=== PATIENT | male | born 1985 | race Caucasian/White ===

== ENCOUNTER 2017-04-22 06:20 | Day surgery (SDC) | payer OTHER ==
[~2017-04-22] VITALS: Ht 185.4 cm; Wt 76.8 kg
[2017-04-22] MEDS ORDERED: MIDAZOLAM 1 MG/ML, 2ML ONE (06:45)
[2017-04-22] MEDS ORDERED: FENTANYL PF 100 MCG/2ML ONE ×4 (06:46→10:44)
[2017-04-22] MEDS ORDERED: BUPIVACAINE/PF 0.5% ONE (06:51)
[2017-04-22] MEDS ORDERED: EPINEPHRINE 1 MG/ML, 1ML ONE (06:51)
[2017-04-22] MEDS ORDERED: LACTATED RINGERS 1,000 ML IV SCH ×2 (07:04→07:30)
[2017-04-22 07:06] VITALS: BP 120/78
[2017-04-22 07:11] VITALS: BP 120/78
[2017-04-22] MEDS ORDERED: NONE PER PT (07:19)
[2017-04-22 07:43] LABS: HEMATOCRIT 49.3 % (39.2-51.8); HEMOGLOBIN 16.7 g/dL (13.7-18.0); WHITE BLOOD COUNT 8.7 x10^3/uL (3.4-10)
[2017-04-22] MEDS ORDERED: NEOSTIGMINE 1 MG/ML, 10ML ONE (07:54)
[2017-04-22] MEDS ORDERED: SUCCINYLCHOLINE 20 MG/ML, 10ML ONE (07:54)
[2017-04-22] MEDS ORDERED: DEXAMETHASONE 4 MG/ML, 5ML ONE (07:54)
[2017-04-22] MEDS ORDERED: GLYCOPYRROLATE 0.2MG/1ML ONE (07:54)
[2017-04-22] MEDS ORDERED: PROPOFOL 10 MG/ML, 20ML ONE (07:54)
[2017-04-22] MEDS ORDERED: ROCURONIUM 10 MG/ML ONE ×3 (07:54)
[2017-04-22] MEDS ORDERED: CEFAZOLIN 1,000 MG ONE (07:54)
[2017-04-22] MEDS ORDERED: ONDANSETRON 2MG/ML, 2ML ONE (07:54)
[2017-04-22] MEDS ORDERED: OXYcodone 5 MG/5 ML ORAL.SOL UDC PO PRN (08:30)
[2017-04-22] MEDS ORDERED: hydrALAzine 20 MG/ML, 1ML IV PRN (08:30)
[2017-04-22] MEDS ORDERED: ONDANSETRON 2MG/ML, 2ML IVPush PRN (08:30)
[2017-04-22] MEDS ORDERED: PROMETHAZINE 25 MG/ML, 1ML IV PRN (08:30)
[2017-04-22] MEDS ORDERED: HYDROmorphone 1 MG/ML, 1ML IV PRN (08:30)
[2017-04-22] MEDS ORDERED: MEPERIDINE/PF 25MG/0.5ML IVPush PRN (08:30)
[2017-04-22] MEDS ORDERED: FENTANYL PF 100 MCG/2ML IV PRN (08:30)
[2017-04-22] MEDS ORDERED: MIDAZOLAM 1 MG/ML, 2ML IV PRN (08:30)
[2017-04-22] MEDS ORDERED: ALBUTEROL SULFATE 2.5 MG/3 ML NPPB PRN (08:30)
[2017-04-22] MEDS ORDERED: LABETALOL 5MG/ML, 20ML IV PRN (08:30)
[2017-04-22] MEDS ORDERED: ACETAMINOPHEN 325 MG TABLET PO PRN (08:30)
[2017-04-22] MEDS ORDERED: MEPERIDINE/PF 50 MG/ML ONE (10:09)
[2017-04-22] MEDS ORDERED: OXYcodone 5 MG/5 ML ORAL.SOL UDC ONE (10:44)
[2017-04-22] MEDS ORDERED: ACETAMINOPHEN 650 MG/20.3 ML UDC ONE (10:44)
[2017-04-22] MEDS ORDERED: ACETAMINOPHEN 325 MG TABLET ONE (10:44)
== END 2017-04-22 13:50 ==
LOC: OUT 06:20
PROVIDERS: ATTEND Surgery
DX: Z30.2 Encounter for sterilization (principal); K40.90 Unilateral inguinal hernia, without obstruction or gangrene, not specified as recurrent; K08.409 Partial loss of teeth, unspecified cause, unspecified class; Z98.890 Other specified postprocedural states; Z72.89 Other problems related to lifestyle
CPT/HCPCS: 36415; 49650; 55250; 85025; 88302; C1781; J0171; J0330; J0690; J1100; J2175; J2250; J2405; J2704; J2710; J3010; J3490; J7120; S2900